=== PATIENT | male | born 1975 | race Caucasian/White ===

== ENCOUNTER 2018-08-05 17:46 | Emergency (ER) | payer MEDICAID, OTHER ==
[2018-08-05 17:55] VITALS: O2SAT 100
[2018-08-05] MEDS ORDERED: Atropine-Diphenoxylate 0.025-2.5 mg Tab PO STA (18:20)
--- NOTE | 2018-08-05 18:23 | C.PDOC ---
History Of Present Illness 42 year old male presents to the ED for evaluation of multiple episodes of diarrhea and vomiting x 3 days. Patient states he initially had nausea earlier today which has now resolved. Patient also reports left lower quadrant cramping today which now resolved. Patient reports multiple loose watery bowel movements and subjective fever. Denies other associated symptoms. MULT DIARRHEA, VOMITING X 3 DAYS. PS INITIALLY W NAUSEA EARLIER TODAY NOW RESOLVED. 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 +MULT LOOSE WATERY BM. SUBJ FEVER. NO OTHER ASSOC SX EXAM NONTOXIC AMBUL WO DIFF NO ORTHOSTATIC SX ANICTERIC ABD SOFT NT ND NO R/G REMAINDER NEG Time Seen by Provider: 08/05/18 18:09 Chief Complaint (Nursing): Abdominal Pain History Per: Patient History/Exam Limitations: no limitations Onset/Duration Of Symptoms: Hrs Current Symptoms Are (Timing): Still Present Quality Of Discomfort: "Pain" Associated Symptoms: Fever, Vomiting, Diarrhea Past Medical History Reviewed: Historical Data, Nursing Documentation, Vital Signs Vital Signs: Last Vital Signs Temp 98.5 F 08/05/18 17:53 Pulse 67 08/05/18 17:53 Resp 17 08/05/18 17:53 BP 113/78 08/05/18 17:53 Pulse Ox 100 08/05/18 17:53 - Medical History PMH: No Chronic Diseases Surgical History: No Surg Hx Family History: States: Unknown Family Hx - Social History Hx Tobacco Use: No Hx Alcohol Use: Yes Hx Substance Use: No - Immunization History Hx Tetanus Toxoid Vaccination: No Hx Influenza Vaccination: No Hx Pneumococcal Vaccination: No Review Of Systems Constitutional: Positive for: Fever (subjective ) Respiratory: Negative for: Cough, Shortness of Breath Gastrointestinal: Positive for: Vomiting, Abdominal Pain, Diarrhea Skin: Negative for: Rash, Lesions, Jaundice, Bruising Neurological: Negative for: Weakness, Numbness Physical Exam - Physical Exam Appears: Non-toxic, No Acute Distress, Other (non-toxic, ambulatory w/o difficulty, no orthostatic symptoms ) Skin: Normal Color, Warm, Dry Head: Atraumatic, Normacephalic Eye(s): bilateral: Normal Inspection, PERRL, EOMI, Other (anicteric ) Oral Mucosa: Moist Neck: Supple Chest: Symmetrical, No Deformity, No Tenderness Cardiovascular: Rhythm Regular, No Murmur Respiratory: Normal Breath Sounds, No Rales, No Rhonchi, No Wheezing Gastrointestinal/Abdominal: Soft, No Tenderness, No Guarding, No Rebound Extremity: Normal ROM, Capillary Refill (less than 2 seconds) Neurological/Psych: Oriented x3, Normal Speech, Normal Cognition ED Course And Treatment O2 Sat by Pulse Oximetry: 100 (on RA) Pulse Ox Interpretation: Normal Progress Note: Bentyl PO, Lomotil PO, and Zofran PO given. Disposition Counseled Patient/Family Regarding: Diagnosis, Need For Followup, Rx Given - Disposition Referrals: [facility] [Outside] [facility] [Outside] Disposition: HOME/ ROUTINE Disposition Time: 19:00 Condition: IMPROVED Prescriptions: Dicyclomine [Bentyl] 20 mg PO TID PRN #12 tab PRN Reason: Pain Loperamide HCl [Imodium A-D] 2 mg PO DAILY PRN #12 capsule PRN Reason: Diarrhea Ondansetron ODT [Zofran ODT] 4 mg PO TID PRN #12 odt PRN Reason: Nausea/Vomiting Instructions: Diarrhea and Traveler's Diarrhea, Adult (DC) Forms: valuklik (Marshallese), Work Excuse Print Language: ROMANIAN - Clinical Impression Clinical Impression: Abdominal bloating, Abdominal discomfort, Nausea, Diarrhea - Scribe Statement The provider has reviewed the documentation as recorded by the Scribe (Tammie Almanza) Provider Attestation: All medical record entries made by the Scribe were at my direction and personally dictated by me. I have reviewed the chart and agree that the record accurately reflects my personal performance of the history, physical exam, medical decision making, and the department course for this patient. I have also personally directed, reviewed, and agree with the discharge instructions and disposition.
[2018-08-05] MEDS ORDERED: Atropine-Diphenoxylate 0.025-2.5 mg Tab ONE (18:30)
[2018-08-05 19:14] VITALS: BP 110/81; PULSE 81; RESP 18; TEMP 98.1
== END 2018-08-05 19:14 | disposition home or self-care (01) ==
LOC: C.ER 17:46
DX: R14.0 Abdominal distension (gaseous) (principal); R11.0 Nausea; R19.7 Diarrhea, unspecified